=== PATIENT | male | born 1955 | race Caucasian/White ===

== ENCOUNTER 2019-02-02 15:28 | Emergency (ER) | payer BC ==
[~2019-02-02] VITALS: Ht 172.7 cm; Wt 99.3 kg
[2019-02-02 16:06] VITALS: BP 107/74
== END 2019-02-02 16:49 | disposition home or self-care (01) ==
LOC: ED 15:28
DX: M70.51 Other bursitis of knee, right knee (principal); I10 Essential (primary) hypertension; E78.00 Pure hypercholesterolemia, unspecified; I25.2 Old myocardial infarction; Y93.89 Activity, other specified